=== PATIENT | female | born 1990 | race Caucasian/White ===

== ENCOUNTER → 2020-06-22 | Outpatient (CLI) | payer OTHER | LOC: ULTRA 09:17 | PROVIDERS: ATTEND Family Medicine | DX: N83.8 Other noninflammatory disorders of ovary, fallopian tube and broad ligament (principal) ==

== ENCOUNTER → 2020-08-03 | Outpatient (CLI) | payer OTHER ==
[2020-08-04 02:06] LABS: LUTEINIZING HORMONE (LH) 14.1 mIU/mL (()); PROLACTIN 7.5 ng/mL (4.8-23.3)
[2020-08-04 03:06] LABS: GLYCOHEMOGLOBIN (HGB A1C) 4.8 % (4.8-5.6)
== END ==
LOC: LAB 12:54
PROVIDERS: ATTEND Obstetrics & Gynecology
DX: Z01.419 Encounter for gynecological examination (general) (routine) without abnormal findings (principal)

== ENCOUNTER → 2020-10-25 | Outpatient (CLI) | payer OTHER ==
[2020-10-25 08:27] LABS: BASOPHILS 0.4 % (0.0-2.0); EOSINOPHILS 1.9 % (0.0-3.0); HEMATOCRIT 38.2 % (37.0-47.0); HEMOGLOBIN 12.8 gm/dL (12.0-15.0); LYMPHOCYTES 33.4 % (24.0-44.0); MCHC 33.4 g/dL (28.0-37.0); MCV 86.8 fL (80.0-100.0); PLATELET COUNT 232 thou/uL (150-400); POLYS 56.3 % (36.0-66.0); RDW 13.2 % (10.5-14.5); WBC 5.3 thou/uL (4.0-11.0)
[2020-10-25 08:43] LABS: ALBUMIN 4.4 g/dL (3.4-5.0); CALCIUM 9.5 mg/dL (8.5-10.1); CREATININE 0.8 mg/dL (0.6-1.0); POTASSIUM 4.2 mmol/L (3.5-5.1); TOTAL BILIRUBIN 0.4 mg/dL (0.2-1.0); TOTAL PROTEIN 7.7 g/dL (6.4-8.2)
== END ==
LOC: LAB 07:20
PROVIDERS: ATTEND Nurse Practitioner
DX: E55.9 Vitamin D deficiency, unspecified (principal); E53.8 Deficiency of other specified B group vitamins; L65.9 Nonscarring hair loss, unspecified; R53.82 Chronic fatigue, unspecified

== ENCOUNTER → 2021-03-13 | Outpatient (CLI) | payer OTHER | LOC: LAB 12:31 | PROVIDERS: ATTEND Family Medicine | DX: R07.9 Chest pain, unspecified (principal) ==

== ENCOUNTER → 2021-03-15 | Outpatient (CLI) | payer OTHER | LOC: SJCVCIMAG 13:36 | PROVIDERS: ATTEND Internal Medicine | DX: I37.1 Nonrheumatic pulmonary valve insufficiency (principal); R55 Syncope and collapse ==

== ENCOUNTER → 2021-10-29 | Outpatient (CLI) | payer OTHER | LOC: BC 10:44 | PROVIDERS: ATTEND Nurse Practitioner | DX: N63.20 Unspecified lump in the left breast, unspecified quadrant (principal) ==

== ENCOUNTER → 2021-11-07 | Outpatient (CLI) | payer OTHER ==
[2021-11-07 14:41] LABS: BASOPHILS 0.2 % (0.0-2.0); EOSINOPHILS 0.9 % (0.0-3.0); HEMOGLOBIN 12.7 gm/dL (12.0-15.0); LYMPHOCYTES 17.2 % (24.0-44.0); MCHC 33.5 g/dL (28.0-37.0); MCV 86.7 fL (80.0-100.0); MONOCYTES 8.8 % (1.0-8.0); PLATELET COUNT 199 thou/uL (150-400); POLYS 72.9 % (36.0-66.0); RBC 4.39 mil/uL (4.20-5.00); RDW 13.1 % (10.5-14.5); URINE BILIRUBIN NEGATIVE (Negative); URINE BLOOD NEGATIVE (Negative); URINE CLARITY CLEAR; URINE COLOR YELLOW; URINE GLUCOSE-RANDOM* NEGATIVE (Negative); URINE KETONES NEGATIVE (Negative); URINE LEUKOCYTES-REFLEX NEGATIVE (Negative); URINE NITRITE-REFLEX NEGATIVE (Negative); URINE PROTEIN (DIPSTICK) NEGATIVE (Negative); URINE SPECIFIC GRAVITY <= 1.005 (1.005-1.035); URINE UROBILINOGEN 0.2 E.U./dl (0.2-1.0); WBC 4.1 thou/uL (4.0-11.0)
[2021-11-07 14:55] LABS: ALBUMIN 4.8 g/dL (3.4-5.0); ANION GAP 11 mmol/L (7-16); BUN 6 mg/dL (7-18); CALCIUM 9.7 mg/dL (8.5-10.1); CHLORIDE 100 mmol/L (98-107); CHOLESTEROL 172 mg/dL (<200); CO2 29 mmol/L (21-32); CREATININE 0.7 mg/dL (0.6-1.0); GLUCOSE 83 mg/dL (74-106); HDL CHOLESTEROL 58 mg/dL (>40); LDL CHOLESTEROL 102 mg/dL (<100); POTASSIUM 3.4 mmol/L (3.5-5.1); SGOT 12 U/L (15-37); SGPT 24 U/L (30-65); SODIUM 140 mmol/L (136-145); TOTAL BILIRUBIN 0.4 mg/dL (0.2-1.0); TOTAL PROTEIN 8.5 g/dL (6.4-8.2); TRIGLYCERIDE 64 mg/dL (<150); VLDL 13 mg/dL (<40)
== END ==
LOC: LAB 13:26
PROVIDERS: ATTEND Family Medicine
DX: Z00.00 Encounter for general adult medical examination without abnormal findings (principal); E55.9 Vitamin D deficiency, unspecified; E53.8 Deficiency of other specified B group vitamins